=== PATIENT | female | born 1990 | race Caucasian/White ===

== ENCOUNTER 2017-01-21 10:48 | Emergency (ER) | payer OTHER ==
[~2017-01-21] VITALS: Wt 58.1 kg
[~2017-01-21 10:48] MED LIST: BACTRIM DS 8001 TA1 PO; CIPRO250 MG PO; FLEXERIL10 MG PO; LOTRIMIN 1%15 GM PO; MACROBID100 M1 PO; MOTRIN600 MG PO; NAPROSYN500 MG PO; NKHM; ZITHROMAX Z PA250 MG PO; ZYRTEC10 MG PO
[2017-01-21] MEDS ORDERED: LOTRIMIN 1%15 GM PO (11:18)
== END 2017-01-21 11:28 | disposition home or self-care (01) ==
LOC: ED 10:48
DX: B35.3 Tinea pedis (principal); F17.200 Nicotine dependence, unspecified, uncomplicated; Z98.890 Other specified postprocedural states; Z88.6 Allergy status to analgesic agent; Z88.1 Allergy status to other antibiotic agents; Z88.5 Allergy status to narcotic agent